=== PATIENT | female | born 1990 | race Caucasian/White ===

== ENCOUNTER 2016-03-05 03:50 | Outpatient (RCR) | payer BC | END 2016-06-03 | disposition home or self-care (01) | LOC: PT 03:50 | PROVIDERS: ATTEND Podiatrist | DX: M76.71 Peroneal tendinitis, right leg (principal); M62.838 Other muscle spasm; Z53.9 Procedure and treatment not carried out, unspecified reason ==

== ENCOUNTER → 2016-06-21 | Outpatient (CLI) | payer BC | LOC: ED 17:32 → LAB 17:35 → EDSTATUS 17:35 | PROVIDERS: ATTEND Surgery | DX: R10.31 Right lower quadrant pain (principal) | CPT/HCPCS: 74177; Q9967 ==

== ENCOUNTER → 2016-06-21 | Outpatient (REF) | payer BC ==
[2016-06-21 16:19] LABS: BASOPHILS % (AUTO) 0 % (0-2); EOSINOPHILS % (AUTO) 0 % (0-4); LYMPHOCYTES # (AUTO) 2.6 X10^3; MEAN CORPUSCULAR HEMOGLOBIN 28.3 PG (26.0-34.0); MEAN CORPUSCULAR HGB CONC 33.6 g/dL (31.0-37.0); MEAN CORPUSCULAR VOLUME 84 FL (80-100); MEAN PLATELET VOLUME 10.1 FL (6.0-9.5); MONOCYTES # (AUTO) 0.6 X10^3; MONOCYTES % (AUTO) 7 % (3-11); NEUTROPHILS # (AUTO) 6.3 X10^3; NEUTROPHILS % (AUTO) 65 % (51-67); PLATELET COUNT 209 10^3uL (150-450); WHITE BLOOD COUNT 9.59 10^3uL (4.0-11.0)
[2016-06-21 16:33] LABS: BILIRUBIN,URINE Negative (Negative); CLARITY,URINE Clear; COLOR,URINE Yellow; GLUCOSE, URINE (UA) Negative (Negative); LEUKOCYTE ESTERASE ,URINE 2+ (Negative); PH,URINE 7.5 (5.0 - 8.0); UROBILINOGEN,URINE 0.2 mg/dL (0.2-1.0)
[2016-06-21 16:59] LABS: RBC,URINE None Seen /HPF; URINE CENTRIFUGED VOLUME 12 mL
== END ==
LOC: LAB 15:57
PROVIDERS: ATTEND Family Medicine
DX: R10.31 Right lower quadrant pain (principal)
CPT/HCPCS: 81003; 81015; 84703; 85025; 87088